=== PATIENT | male | born 2000 | race Caucasian/White ===

== ENCOUNTER 2021-06-03 12:25 | Inpatient (IN) | payer MEDICAID, SELFPAY ==
[2021-06-03 12:22] VITALS: BMI 22.8
[2021-06-03 12:26] VITALS: BP 123/77; PULSE 82; RESP 20; TEMP 36.7; O2SAT 97
[2021-06-03] MEDS: nicotine 2 mg Gum BUCCAL ×2 (12:50→18:51)
--- NOTE | 2021-06-03 13:03 | PC.NURSE ---
ADMISSION PT IS DIRECT ADMIT FROM [facility]. PRESENTED TO ED WITH C/O FEELING SUICIDAL WITH NO PLAN, HEARING VOICES AND FEELINGS OF PARANOIA/NO CONTROL OVER BODY. PER ER PT WAS RECENTLY IN [place] [facility] FOR 10 DAYS WHERE HE WAS TREATED WITH INVEGA 9 MG QD, ZYPREXA ZYDIS 5 MG BID PRN, ATIVAN 1 MG Q6 PRN (4 DAY SUPPLY). PT STATES THAT HE IS ONLY TAKING THE ZYDIS. DENIES ANY AVH UPON NPU ADMISSION. ENDORSES DEPRESSION BUT NO CURRENT SI. NO HI. OX4, CALM, COOPERATIVE. ABRASIONS SCATTERED ON LEFT FOREARM.
[2021-06-03] MEDS: hyDROXYzine 25 mg Capsule 50 MG PO (13:14)
[2021-06-03 14:00] VITALS: BP 142/89; PULSE 78; RESP 20; TEMP 36.8; O2SAT 100
[2021-06-03] MEDS: OLANZapine 5 mg ODT PO (14:56)
[2021-06-03] MEDS: acetaminophen 325 mg Tablet 650 MG PO (16:01)
[2021-06-03] MEDS: LORazepam 1 mg Tablet PO (17:51)
[2021-06-03] MEDS: haloperidol 5 mg Tablet PO (17:51)
[2021-06-03] MEDS: diphenhydrAMINE 50 mg Capsule PO (17:51)
--- NOTE | 2021-06-03 18:30 | PC.NURSE ---
ANOTHER PT BECAME PARANOID REGARDING THIS PT. OTHER PT MADE STATEMENTS ABOUT THIS TO THIS PT. PTS BEGAN MAKING AGGRESSIVE COMMENTS TOWARDS EACH OTHER AND POSTURING TOWARDS EACH OTHER. PTS BEGAN TO SWING AT EACH OTHER. STAFF TO العلي BETWEEN PTS TO INTERVENE. BOTH PTS STATE THAT NEITHER MADE PHYSICAL CONTACT WITH THE OTHER. PTS DIRECTED BY STAFF TO OPPOSITE ENDS OF العلي. THIS PT DID NOT CALM QUICKLY. REMAINED ANXIOUS AND YELLING DOWN العلي AT OTHER PT WITH CONTINUE THREATS. PT MOVED TO OPPOSITE العلي TO SEPARATE. NOTIFIED AND GAVE NEW ORDERS FOR PRN MEDICATIONS. MEDS GIVEN PO WITHOUT ISSUE. PT SHOWERED AND HAS CALMED. PT DENIES MAKING PHYSICAL CONTACT WITH OTHER PT OR THAT OTHER PT MADE CONTACT WITH HIM. NO FURTHER ISSUES.
[2021-06-03 19:53] VITALS: BP 144/82; PULSE 103; RESP 17; O2SAT 100
[2021-06-03] MEDS: trazodone 50 mg Tablet PO (20:14)
--- NOTE | 2021-06-03 22:23 | PC.NURSE ---
2014 requested trazodone for sleep. It was effective.
[2021-06-04 06:00] VITALS: RESP 20
--- NOTE | 2021-06-04 10:20 | P.NPUHP_ITS ---
Providers/Chief Complaint Admitting Physician: Serafin Stevens MD [facility] NPU History of Present Illness Connor Case is a 20 year old male admitted through an outside emergency department with the following report: Patient presents to the emergency department with mother who he lives with for evaluation of suicidal ideation with intent without plan.? Patient reports I do not seem to like myself.? I am hearing voices that I can understand, I do have paranoia and feel everyone is out to get me, I do not have control of my body I am scared .? Patient did not sleep last night and had an episode of bowel and bladder incontinence.? Patient has had no oral intake today however and normal intake yesterday.? Current anxiety 11/27, depression 11/27.? Psychiatric diagnosis history includes bipolar 1 with psychotic features and intermittent explosive disorder.? Patient is willing to be voluntarily admitted.? History of suicide attempts via overdose a month ago.? Patient was discharged yesterday from [facility] he is being treated for hyponatremia and NMS.? Prior to this hospitalization patient was hospitalized at [facility] in [facility] for 10 days patient was treated with Invega 9 mg daily and Zyprexa 5 mg daily as needed with 4 doses total.? Current medication include Ativan 1 mg every 6 hours.? Prior psychotropics include Zyprexa for 1 year which was previously tolerated other than weight gain.? Patient failed Abilify propranolol and Latuda. He does not remember much about his symptoms with neuroleptic malignant syndrome. He mostly described recent symptoms of kamryn. He has been angry and losing his temper easily. He has had difficulty sleeping. He has been energetic. He says he has periods of ups and downs. He cannot remember being on one of the mood stabilizers other than antipsychotics. He does not think that he has been on lithium previously. He was supposed to be taking Ativan to help him sleep. He agreed to a trial of Depakote and will use Ativan to make sure that he sleeps every night. He slept last night with trazodone and Benadryl. On the unit he gets along with people at times. Other times he loses his temper and got into a fight yesterday. He says that is his biggest problem, getting irritated and agitated easily. He says that he has intermittent explosive disorder as well as the bipolar disorder. Meds NPU Allergies Allergy/AdvReac Type Severity Reaction Status Date / Time No Known Allergies Allergy Verified 06/03/21 12:25 Mental Status Exam MSE Comments: This is an 20-year-old appropriate weight male who appears his approximate age and is in no acute distress. He is pleasant and cooperative with the evaluation. He is sitting up in his bed. His grooming is fair and he is dressed in hospital scrubs. psychomotor activity is normal. Speech is at a regular rate and rhythm, normal volume, good articulation, not pressured. Alert, oriented X3 Attention and concentration appears to be normal. Memory is intact Mood is good. Affect is euthymic. Thought process is logical and goal-directed. Thought content: Denies auditory and visual hallucinations. No delusions or paranoia are noted. No current suicidal ideation, and no homicidal ideation. Fund of knowledge is average. Insight and judgment appear to be poor. He does not really have much insight into his symptoms.. Impulse control is poor. Vitals/I&O/Wt Last Vital Signs Temp 98.2 F 06/03/21 14:00 Pulse 103 H 06/03/21 19:53 Resp 20 H 06/04/21 06:00 BP 144/82 06/03/21 19:53 Pulse Ox 100 06/03/21 19:53 Weight last 48 hrs Weight 70.307 kg Weight 70.307 kg A&P Assessment and plan (1) Bipolar 1 disorder: Status: Acute (2) Neuroleptic malignant syndrome: Status: Acute Plan This is a 20-year-old male with bipolar 1 disorder who was recently hospitalized because of neuroleptic malignant syndrome after taking Invega 9 mg daily. Plan: 1. We will start on Depakote 750 mg today. We will use Ativan and trazodone to help him sleep. 2. Continue every 15 minute checks for safety. 3. Encourage individual, group and milieu therapies. 4. Encourage sober living treatment after discharge at the highest level of care to which he is willing to commit. 5. We will monitor for safety for himself in the community prior to discharge. Involuntary Hold Information 96 Hour Hold: 96 Hour Involuntary Admission: No Attestations NPU Medical Necessity Statement*: Inpatient hospitalization is medically necessary and the clinically appropriate intervention at this time. We will initiate medications and make changes as indicated. He will be in the hospital for over 2 midnights. Likely length of stay 4-6 days Coding Level of Care Code Acute Window Dresser for g Fwd Diagnoses Bipolar 1 disorder F31.9 Neuroleptic malignant syndrome G21.0
[2021-06-04] MEDS: divalproex ER 250 mg Tablet (24H) PO (10:43)
[2021-06-04] MEDS: diphenhydrAMINE 50 mg Capsule PO (12:01)
[2021-06-04] MEDS: LORazepam 2 mg Tablet PO ×2 (12:01→20:56)
[2021-06-04] MEDS: OLANZapine 5 mg ODT PO ×2 (12:01→18:05)
[2021-06-04] MEDS: acetaminophen 325 mg Tablet 650 MG PO (12:02)
--- NOTE | 2021-06-04 12:29 | PC.NURSE ---
Disruptive Behavior At approximately 1145 patient got off the phone, threw an empty cup towards nurses station, walked down the garcia and rammed his forehead into the wall. Staff to room, patient began to hit himself in the head and face with closed fists. Verbally redirected and patient stopped. Asked if he would take PO meds to ease his anxiety and agreed. Dr. Stevens notified of behavior. New orders received for Ativan 2 MG PO Now and Benadryl [address] Stevens also gave verbal orders to give with Zydis 5 mg and discontinue Haldol due to malignant neuroleptic syndrome. Patient received medications and asked to shower with no further issues. Has remained calm and cooperative.
[2021-06-04] MEDS: nicotine 2 mg Gum BUCCAL ×2 (12:38→18:20)
--- NOTE | 2021-06-04 13:11 | PC.NURSE ---
Spoke with mother Patricia, who is on Hippa sheet. She gave discharge medication list to this RN. Upon D/C from [facility], medications as follows: Vistaril 50 mg BID, Risperdone 2 mg BID, Depakote 500 MG 2 tabs PO BID, Trazadone 100MG PO at HS and Lorazepam 1 mg PO TID. Mother reports patient refuses to take any medications at home except the Ativan which 40 tabs were missing in one day. List given to Dr. Stevens to update.
[2021-06-04 14:00] VITALS: BP 131/82; PULSE 99; RESP 20; TEMP 36.7; O2SAT 99
--- NOTE | 2021-06-04 18:18 | PC.NURSE ---
Behaviors Patient was on phone, getting increasingly agitated wanting to go home. Telling staff, you don't know what the fuck your doing. You got my lunch and dinner all messed up. Staff attempted to verbally redirect with little effectiveness. Pt stating that he wanted sleeping meds. Offered PRN medications for agitation. Pt agreed to take meds. Vivek walking to room, head butted wall 1x. Was redirected easily by staff and did not hit self further. Staff brought PRN Natty to room where pt threw it to floor then picked up and took med but stated that it would not be effective. Pt crumpled cards and threw them in floor as well. Staff remained with pt until calmed. Pt tearful and reported that has feelings of paranoia at times. States that he just wants to go home but then states that he hates his life and wants to . Pt did calm and is now up in garcia talking with staff.
[2021-06-04] MEDS: trazodone 50 mg Tablet PO (20:00)
[2021-06-04 20:24] VITALS: BP 120/75; PULSE 86; RESP 18; TEMP 36.6; O2SAT 100
[2021-06-04] MEDS: divalproex ER 500 mg Tablet (24H) PO (20:56)
--- NOTE | 2021-06-05 00:01 | PC.NURSE ---
Patient asked aid for melatonin, then immediately asked me and several other staff members for the same thing. I began to og on to computer to lookl at patients chart and orders and he became very agitated and demanding. Demanded melatonin right now, and yelled at me to just get it, this place is ridiculous. I hate it here. I just want to go home and kill myself. Patient then punched himself in the face approx three times and stomped off down the garcia. He then came back up to the nurses station and demanded medication or I'll call 911, thats illegal, you have to medicate me. Attempted to redirect and reassure patient. Educated patient on times medications are due and what medications he has ordered. Patient contracted for safety and apologized for getting upset and appeared to calm down. PRN trazodone was given as ordered to help with sleep along with routine scheduled medication.
[2021-06-05 06:00] VITALS: BP 118/72; PULSE 83; RESP 18; TEMP 36.8; O2SAT 99
--- NOTE | 2021-06-05 07:28 | P.NPUPN_ITS ---
Subjective NPU Subjective: He says that he is doing better. He says that he only got 4 hours of sleep last night. He wanted to increase his sleep medications. He does not have any side effects from the Depakote 750 mg that he received yesterday. He agreed to increase it gradually. He continues to deny any voices or paranoia. Yesterday afternoon he had the following report: At approximately 1145 patient got off the phone, threw an empty cup towards nurses station, walked down the garcia and rammed his forehead into the wall. Staff to room, patient began to hit himself in the head and face with closed fists. Verbally redirected and patient stopped. At midnight he had the following nurses note: Patient asked aid for melatonin, then immediately asked me and several other staff members for the same thing. I began to og on to computer to lookl at patients chart and orders and he became very agitated and demanding. Demanded melatonin right now, and yelled at me to just get it, this place is ridiculous. I hate it here. I just want to go home and kill myself. Patient then punched himself in the face ap prox three times and stomped off down the garcia. He then came back up to the nurses station and demanded medication or I'll call 911, thats illegal, you have to medicate me. ? Mental Status Exam MSE Comments: This is an 20-year-old appropriate weight male who appears his approximate age and is in no acute distress. He is pleasant and cooperative with the evaluation. He is sitting up in his bed. His grooming is fair and he is dressed in hospital scrubs. psychomotor activity is normal. Speech is at a regular rate and rhythm, normal volume, good articulation, not pressured. Alert, oriented X3 Attention and concentration appears to be normal. Memory is intact Mood is good. Affect is euthymic. Thought process is logical and goal-directed. Thought content: Denies auditory and visual hallucinations. No delusions or paranoia are noted. No current suicidal ideation, and no homicidal ideation. Fund of knowledge is average. Insight and judgment appear to be poor. He does not really have much insight into his symptoms.. Impulse control is poor. Cognition: Patient Appearance: Appropriate Ability to Follow Directions: Good Patient Orientation (long list): Person, Place, Name and Year Comprehension Ability: Understands Concepts Hallucination Type: None Delusion Description: Not Present Thought Process: Appropriate Affect: Affect Description: Appropriate Behavior: Patient Behavior: Appropriate Speech Pattern: Appropriate Vitals/I&O/Wt Last Vital Signs Temp 98.2 F 06/05/21 06:00 Pulse 83 06/05/21 06:00 Resp 18 06/05/21 06:00 BP 118/72 06/05/21 06:00 Pulse Ox 99 06/05/21 06:00 Weight last 48 hrs Weight 70.307 kg Weight 70.307 kg A&P Assessment and plan (1) Bipolar 1 disorder: Status: Acute (2) Neuroleptic malignant syndrome: Status: Acute Plan This is a 20-year-old male with bipolar 1 disorder who was recently hospitalized because of neuroleptic malignant syndrome after taking Invega 9 mg daily. Plan: 1. We will start on Depakote 750 mg and gradually increase.. We will increase Ativan and trazodone to help him sleep. 2. Continue every 15 minute checks for safety. 3. Encourage individual, group and milieu therapies. 4. Encourage sober living treatment after discharge at the highest level of care to which he is willing to commit. 5. We will monitor for safety for himself in the community prior to discharge. Involuntary Hold Information 96 Hour Hold: 96 Hour Involuntary Admission: No Attestations NPU Medical Necessity Statement*: Inpatient hospitalization is medically necessary and the clinically appropriate intervention at this time. We will initiate medications and make changes as indicated. Coding Level of Care Code Acute Supervisor Hot Dip Plating for Megan Butler Diagnoses Bipolar 1 disorder F31.9 Neuroleptic malignant syndrome G21.0
[2021-06-05] MEDS: divalproex ER 250 mg Tablet (24H) PO ×3 (07:44→20:56)
[2021-06-05] MEDS: OLANZapine 5 mg ODT PO (07:44)
[2021-06-05] MEDS: acetaminophen 325 mg Tablet 650 MG PO (07:45)
--- NOTE | 2021-06-05 13:01 | PC.NURSE ---
AT 1745 PT C/O GENERALIZED PAIN AND HIGH ANXIETY. REQUESTED ATIVAN. EDUCATED ON ATIVAN ONLY BEING ORDERED FOR BEDTIME AND OFFERED OTHER PRN MEDICATIONS. PT TOOK PRN ZYDIS AND TYLENOL TO GOOD EFFECT.
[2021-06-05 14:00] VITALS: BP 126/91; PULSE 75; RESP 17; TEMP 36.7; O2SAT 98
[2021-06-05 19:51] VITALS: BP 124/76; PULSE 104; RESP 16; TEMP 36.8; O2SAT 99
[2021-06-05] MEDS: LORazepam 2 mg Tablet PO (20:55)
[2021-06-05] MEDS: trazodone 100 mg Tablet PO (20:55)
[2021-06-05] MEDS: divalproex ER 500 mg Tablet (24H) PO (20:56)
[2021-06-05] MEDS: LORazepam 1 mg Tablet PO (20:56)
[2021-06-05] MEDS: nicotine 2 mg Gum BUCCAL (21:04)
[2021-06-06 06:00] VITALS: BP 120/74; PULSE 90; RESP 18; TEMP 36.8; O2SAT 96
--- NOTE | 2021-06-06 07:51 | P.NPUPN_ITS ---
Subjective NPU Subjective: He slept well last night. He did not have any blowups yesterday. He does not have any side effects from the Depakote 1250 mg that he received yesterday. We will get a level tomorrow. He slept well last night with the Ativan 3 mg. He only needed Zyprexa Zydis 1 time yesterday. Mental Status Exam MSE Comments: This is an 20-year-old appropriate weight male who appears his approximate age and is in no acute distress. He is pleasant and cooperative with the evaluation. He was found at the nurses station. His grooming is fair and he is dressed in hospital scrubs. psychomotor activity is normal. Speech is at a regular rate and rhythm, normal volume, good articulation, not pressured. Alert, oriented X3 Attention and concentration appears to be normal. Memory is intact Mood is good. Affect is euthymic. Thought process is logical and goal-directed. Thought content: Denies auditory and visual hallucinations. No delusions or paranoia are noted. He said that he did occasionally feel like someone was coming after him but does not feel like that today. That feeling is gradually decreasing. No current suicidal ideation, and no homicidal ideation. Fund of knowledge is average. Insight and judgment appear to be poor. He does not really have much insight into his symptoms.. Impulse control is poor. Cognition: Patient Appearance: Appropriate Ability to Follow Directions: Good Patient Orientation (long list): Person, Place, Name and Year Comprehension Ability: Understands Concepts Hallucination Type: None Delusion Description: Not Present Thought Process: Appropriate Affect: Affect Description: Appropriate Behavior: Patient Behavior: Appropriate and Cooperative Speech Pattern: Appropriate and Clear Vitals/I&O/Wt Last Vital Signs Temp 98.2 F 06/06/21 06:00 Pulse 90 06/06/21 06:00 Resp 18 06/06/21 06:00 BP 120/74 06/06/21 06:00 Pulse Ox 96 06/06/21 06:00 A&P Assessment and plan (1) Bipolar 1 disorder: Status: Acute (2) Neuroleptic malignant syndrome: Status: Acute Plan This is a 20-year-old male with bipolar 1 disorder who was recently hospitalized because of neuroleptic malignant syndrome after taking Invega 9 mg daily. Plan: 1. We will start on Depakote 750 mg and gradually increase. Received 1250 mg yesterday and today and we will get a blood level tomorrow. We will increase Ativan and trazodone to help him sleep. 2. Continue every 15 minute checks for safety. 3. Encourage individual, group and milieu therapies. 4. Encourage sober living treatment after discharge at the highest level of care to which he is willing to commit. 5. We will monitor for safety for himself in the community prior to discharge. Involuntary Hold Information 96 Hour Hold: 96 Hour Involuntary Admission: No Attestations NPU Medical Necessity Statement*: Inpatient hospitalization is medically necessary and the clinically appropriate intervention at this time. We will initiate medications and make changes as indicated. Coding Level of Care Code Acute Computer Equipment Installer for Megan Butler Diagnoses Bipolar 1 disorder F31.9 Neuroleptic malignant syndrome G21.0
[2021-06-06] MEDS: divalproex ER 250 mg Tablet (24H) PO ×3 (09:47→20:35)
[2021-06-06] MEDS: nicotine 2 mg Gum BUCCAL ×3 (10:08→20:00)
[2021-06-06] MEDS: acetaminophen 325 mg Tablet 650 MG PO ×2 (11:14→20:35)
--- NOTE | 2021-06-06 11:31 | PC.NURSE ---
Prn note Patient up to desk requesting nicotine gum. This staff member let patient know it would be just a few minutes as staff was helping another patient at the time. Patient became belligerent and stated I want to call my mom and tell her you people are mistreating patients. You don't help them when they request. You can go suck my olivia Staff asked patient to not speak to staff in that manner and that they would be right with them when they finished helping the other patient.
--- NOTE | 2021-06-06 13:31 | PC.NURSE ---
Nicole rouse Spoke with Kate patient's mom. She reports patient does have a physician and has been seeing a psychiatrist for 3 years. She states she will be able to get him an appt upon discharge. She feels the patient is frustrated with himself and feels uncomfortable in the unit which is why he is acting out and being rude to staff. Mom was transferred to resident services coordinator to give information needed for discharge.
[2021-06-06 14:00] VITALS: BP 130/82; PULSE 120; RESP 20; TEMP 36.6; O2SAT 98
[2021-06-06] MEDS: trazodone 100 mg Tablet PO (20:34)
[2021-06-06] MEDS: divalproex ER 500 mg Tablet (24H) PO (20:35)
[2021-06-06] MEDS: LORazepam 2 mg Tablet PO (20:35)
[2021-06-06] MEDS: LORazepam 1 mg Tablet PO (20:35)
[2021-06-06 22:00] VITALS: BP 123/81; PULSE 105; RESP 16; O2SAT 98
[2021-06-07 05:22] VITALS: BP 115/60; PULSE 80; RESP 17; TEMP 37.2; O2SAT 99
[2021-06-07] MEDS: acetaminophen 325 mg Tablet 650 MG PO (06:54)
--- NOTE | 2021-06-07 07:22 | P.NPUPN_ITS ---
Subjective NPU Subjective: He says that he is doing better. He feels like he is getting back to his normal self. He did not sleep great last night but slept about as well as could be expected here. He does not think that he will sleep great while he is here. The medications were very helpful for his sleep. He has not had side effects from Depakote 1250 mg yesterday. Getting a blood level today and we will adjust from there. He did not have any blowups or require injections yesterday to calm him down. He said he did lose his temper once but calmed himself down. Mental Status Exam MSE Comments: This is an 20-year-old appropriate weight male who appears his approximate age and is in no acute distress. He is pleasant and cooperative with the evaluation. He was found at the nurses station. His groom ing is fair and he is dressed in hospital scrubs. psychomotor activity is normal. Speech is at a regular rate and rhythm, normal volume, good articulation, not pressured. Alert, oriented X3 Attention and concentration appears to be normal. Memory is intact Mood is good. Affect is euthymic. Thought process is logical and goal-directed. Thought content: Denies auditory and visual hallucinations. No delusions or paranoia are noted. He said that he did occasionally feel like someone was coming after him but does not feel like that today. That feeling is gradually decreasing. No current suicidal ideation, and no homicidal ideation. Fund of knowledge is average. Insight and judgment appear to be poor. He does not really have much insight into his symptoms.. Impulse control is poor. Cognition: Patient Appearance: Appropriate Ability to Follow Directions: Good Patient Orientation (long list): Person, Place, Name and Year Comprehension Ability: Understands Concepts Hallucination Type: None Delusion Description: Not Present Thought Process: Appropriate Affect: Affect Description: Appropriate Behavior: Patient Behavior: Appropriate and Cooperative Speech Pattern: Appropriate and Clear Vitals/I&O/Wt Last Vital Signs Temp 98.9 F 06/07/21 05:22 Pulse 80 06/07/21 05:22 Resp 17 06/07/21 05:22 BP 115/60 06/07/21 05:22 Pulse Ox 99 06/07/21 05:22 A&P Assessment and plan (1) Bipolar 1 disorder: Status: Acute (2) Neuroleptic malignant syndrome: Status: Acute Plan This is a 20-year-old male with bipolar 1 disorder who was recently hospitalized because of neuroleptic malignant syndrome after taking Invega 9 mg daily. Plan: 1. We will start on Depakote 750 mg and gradually increase. Received 1250 mg yesterday and today and we will get a blood level today. We will increase Ativan 3 mg and trazodone 100 mg to help him sleep. 2. Continue every 15 minute checks for safety. 3. Encourage individual, group and milieu therapies. 4. Encourage sober living treatment after discharge at the highest level of care to which he is willing to commit. 5. We will monitor for safety for himself in the community prior to discharge. Involuntary Hold Information 96 Hour Hold: 96 Hour Involuntary Admission: No Attestations NPU Medical Necessity Statement*: Inpatient hospitalization is medically necessary and the clinically appropriate intervention at this time. We will initiate medications and make changes as indicated. Coding Level of Care Code Acute Machine Operator Hay Stacker for Megan Butler Diagnoses Bipolar 1 disorder F31.9 Neuroleptic malignant syndrome G21.0
[2021-06-07] MEDS: ondansetron 4 MG Tablet PO (08:12)
[2021-06-07] MEDS: divalproex ER 250 mg Tablet (24H) PO ×3 (08:12→20:35)
[2021-06-07] MEDS: OLANZapine 5 mg ODT PO (09:04)
--- NOTE | 2021-06-07 10:13 | PC.NURSE ---
AM Assessment Patient came into another resident room and demanding he talk to this RN NOW. When this RN attmepted to finish with other patient, he became very agitated and continues to yell, Now please. This RN stopped what she was doing and attended to patient. Went to room to assess and patient reports my stomach is hurting. Why? you should know you're a fucking doctor. informed patient I am not a doctor I am a nurse. Educated that there could be several reasons his stomach is upset. Zofran was received. Denies SI/HI and AVH. Patient began holding his head and ears due to increased noise in the unit. Appears to be over stimulated easily. Verbally deescalated patient and he was able to calm with talking through issues and resolving the noise. Continues to be easily angered and is easily set off if things do not go his way.
--- NOTE | 2021-06-07 10:36 | PC.NURSE ---
PRN MEDS PT GIVEN 4MG ZOFRAN FOR UPSET STOMACH, AND 5MG ZYPREXA FOR IRRITATION, WILL CONTINUE TO MONITOR.
[2021-06-07 11:41] LABS: Valproic Acid Level 85.9 ug/mL (50-100)
[2021-06-07 14:00] VITALS: BP 110/70; PULSE 90; RESP 17; TEMP 36.8; O2SAT 99
--- NOTE | 2021-06-07 14:44 | PC.SOCIAL ---
Client attended and participated in group.
[2021-06-07] MEDS: nicotine 2 mg Gum BUCCAL (19:38)
[2021-06-07 19:57] VITALS: BP 120/79; PULSE 85; RESP 17; O2SAT 100
[2021-06-07] MEDS: divalproex ER 500 mg Tablet (24H) PO (20:34)
[2021-06-07] MEDS: LORazepam 2 mg Tablet PO (20:34)
[2021-06-07] MEDS: LORazepam 1 mg Tablet PO (20:35)
[2021-06-07] MEDS: trazodone 100 mg Tablet PO (20:35)
[2021-06-08 06:00] VITALS: RESP 16
[2021-06-08] MEDS: divalproex ER 250 mg Tablet (24H) PO ×3 (08:56→20:49)
[2021-06-08] MEDS: nicotine 2 mg Gum BUCCAL (13:06)
[2021-06-08 14:00] VITALS: BP 133/71; PULSE 104; RESP 18; TEMP 36.7; O2SAT 98
[2021-06-08] MEDS: OLANZapine 5 mg ODT PO (15:21)
--- NOTE | 2021-06-08 18:07 | P.NPUPN_ITS ---
Subjective NPU Subjective: Patient presents today reporting that he is feeling considerably better. He reports that the symptoms he was having before his mind racing and feeling overly active are slowly dissipating. Reports from staff concur with this slow improvement. We received calls mother reporting that she thinks that he might be getting close to a place where he can be managed at home. We discussed the risk benefits and alternatives of was the morning and talking to family about discharge in the next 48 hours. We did discuss the fact that his dose of Ativan is significant but he should tolerate a discontinuation given the limited time has been administered. We will discuss this with family to be able to support this upon discharge. Mental Status Exam MSE Comments: This is a slender white male in hospital scrubs with adequate grooming and eye contact. No abnormal movements. Cooperative with exam in no acute distress. Speech was normal rate and volume. Mood described as better, affect slightly subdued. Thought process organized. Thought contact: patient denies suicidal or homicidal ideation, there were no delusions reported or noted, patient denied auditory or visual hallucinations. Attention and concentration appeared intact and memory appeared reliable but none were formally tested. Patient is alert and oriented times three. Insight and judgment appear fair and impulse control appears limited. Vitals/I&O/Wt Last Vital Signs Temp 98.0 F 06/08/21 14:00 Pulse 104 H 06/08/21 14:00 Resp 18 06/08/21 14:00 BP 133/71 06/08/21 14:00 Pulse Ox 98 06/08/21 14:00 A&P Assessment and plan (1) Bipolar 1 disorder: Status: Acute (2) Neuroleptic malignant syndrome: Status: Acute Plan This is a 20-year-old male with bipolar 1 disorder who was recently hospitalized because of neuroleptic malignant syndrome after taking Invega 9 mg daily.? Plan: 1.? We will start on Depakote 750 mg and gradually increase.? Received 1250 mg yesterday and today and the level was 92.? He is sleeping okay and will decrease Ativan to 2 mg and continue trazodone 100 mg to help him sleep and in preparation for discharge soon 2.? Continue every 15 minute checks for safety. 3.? Encourage individual, group and milieu therapies. 4.? Encourage sober living treatment after discharge at the highest level of care to which he is willing to commit. 5.? We will work with family for discharge planning. Involuntary Hold Information 96 Hour Hold: 96 Hour Involuntary Admission: No Attestations NPU Medical Necessity Statement*: Inpatient hospitalization is medically necessary and the clinically appropriate intervention at this time.? We will initiate medications and make changes as indicated. Likely length of stay 1 to 2 days. Coding Level of Care Code Acute Lap Machine Operator for [facility] Fwd Diagnoses Bipolar 1 disorder F31.9 Neuroleptic malignant syndrome G21.0
[2021-06-08] MEDS: LORazepam 1 mg Tablet PO (20:48)
[2021-06-08] MEDS: divalproex ER 500 mg Tablet (24H) PO (20:48)
[2021-06-08] MEDS: trazodone 100 mg Tablet PO (20:49)
[2021-06-08] MEDS: LORazepam 2 mg Tablet PO (20:49)
[2021-06-08 21:13] VITALS: BP 103/59; PULSE 82; RESP 16; TEMP 36.7; O2SAT 98
[2021-06-09 06:00] VITALS: BP 114/76; PULSE 73; RESP 19; TEMP 36.5; O2SAT 98
[2021-06-09 07:49] LABS: Valproic Acid Level 87.1 ug/mL (50-100)
[2021-06-09] MEDS: nicotine 2 mg Gum BUCCAL ×3 (09:17→19:43)
[2021-06-09] MEDS: divalproex ER 250 mg Tablet (24H) PO ×3 (09:17→20:02)
[2021-06-09] MEDS: benztropine 1 mg Tablet PO (09:55)
--- NOTE | 2021-06-09 12:43 | W.PM.NPUPNS ---
Subjective NPU Subjective: Patient presents today reporting that he is doing okay and feeling excitement about the possibility of discharge tomorrow. We once again reviewed his Ativan at night and a plan to continue to pull that dosing back appropriately until he was off of it but wanted to make sure he is still able to sleep when he leaves. Family reporting feeling able to support him coming home for his continued convalescence. Mental Status Exam MSE Comments: This is a slender white male in hospital scrubs with adequate grooming and eye contact. No abnormal movements. Cooperative with exam in no acute distress. Speech was normal rate and volume. Mood described as better, affect slightly subdued. Thought process organized. Thought contact: patient denies suicidal or homicidal ideation, there were no delusions reported or noted, patient denied auditory or visual hallucinations. Attention and concentration appeared intact and memory appeared reliable but none were formally tested. Patient is alert and oriented times three. Insight and judgment appear fair and impulse control appears limited. Vitals/I&O/Wt Last Vital Signs Temp 97.7 F 06/09/21 06:00 Pulse 73 06/09/21 06:00 Resp 19 H 06/09/21 06:00 BP 114/76 06/09/21 06:00 Pulse Ox 98 06/09/21 06:00 A&P Assessment and plan (1) Bipolar 1 disorder: Status: Acute (2) Neuroleptic malignant syndrome: Status: Acute Plan This is a 20-year-old male with bipolar 1 disorder who was recently hospitalized because of neuroleptic malignant syndrome after taking Invega 9 mg daily.? Plan: 1.? We will start on Depakote 750 mg and gradually increase.? Received 1250 mg yesterday and today and the level was 92.? He is sleeping okay and we decreased Ativan to 2 mg and continue trazodone 100 mg to help him sleep and in preparation for discharge soon 2.? Continue every 15 minute checks for safety. 3.? Encourage individual, group and milieu therapies. 4.? Encourage sober living treatment after discharge at the highest level of care to which he is willing to commit. 5.? Plan for discharge tomorrow. Involuntary Hold Information 96 Hour Hold: 96 Hour Involuntary Admission: No Attestations NPU Medical Necessity Statement*: Inpatient hospitalization is medically necessary and the clinically appropriate intervention at this time.? We will initiate medications and make changes as indicated.??Tentative plan for discharge in the morning. Coding Level of Care Code Acute Computer Hardware Developer for [facility] Fwd Diagnoses Bipolar 1 disorder F31.9 Neuroleptic malignant syndrome G21.0
[2021-06-09 14:00] VITALS: BP 129/74; PULSE 101; RESP 16; O2SAT 100
[2021-06-09] MEDS: trazodone 100 mg Tablet PO (20:02)
[2021-06-09] MEDS: divalproex ER 500 mg Tablet (24H) PO (20:02)
[2021-06-09] MEDS: LORazepam 2 mg Tablet PO (20:06)
[2021-06-10] MEDS: nicotine 2 mg Gum BUCCAL (03:05)
[2021-06-10 05:42] VITALS: BP 121/75; PULSE 82; RESP 18; O2SAT 99
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
[2021-06-10 08:19] VITALS: BP 121/75; PULSE 82; RESP 18; O2SAT 99
[2021-06-10] MEDS: divalproex ER 250 mg Tablet (24H) PO (09:13)
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
== END 2021-06-10 14:05 | disposition home or self-care (01) | DRG 885 ==
PROVIDERS: Admitting Provider Psychiatry & Neurology Psychiatry; Visit Provider Psychiatry & Neurology Psychiatry
DX: F31.9 Bipolar disorder, unspecified (principal); G21.0 Malignant neuroleptic syndrome; R45.851 Suicidal ideations
CPT/HCPCS: 36415; 80164; 97150; 97165; Q0162; Q0163